=== PATIENT | female | born 2000 | race Caucasian/White ===

== ENCOUNTER 2020-12-22 04:32 | Inpatient (IN) | payer BC ==
[2020-12-22 04:53] VITALS: BMI 24.4
[2020-12-22] MEDS ORDERED: ACETAMINOPHEN 325 MG TABLET (FP) PO ONE (05:13)
[2020-12-22] MEDS ORDERED: ACETAMINOPHEN 325 MG TABLET (FP) ONE (05:28)
[2020-12-22 06:54] LABS: BASO % 0.3 % (0-2.0); HEMATOCRIT 44.3 % (32.4-45.2); MCH 29.9 pg (25.7-33.7); MCHC 33.9 g/dl (32.0-36.0); MEAN CELL VOLUME 88.1 fl (80-96); MEAN PLT VOLUME 10.2 fl (7.5-11.1); MONO % 6.7 % (3.8-10.2); PLATELET COUNT 160 10^3/uL (134-434); RBC 5.03 M/mm3 (3.60-5.2); RDW 13.6 % (11.6-15.6); WHITE BLOOD COUNT 12.8 K/mm3 (4.0-10.0)
[2020-12-22 07:02] LABS: INR 0.97 (0.83-1.09); PROTHROMBIN TIME (PATIENT) 11.7 SEC (9.7-13.0)
[2020-12-22 07:04] LABS: ACTIVATED PTT 23.7 SECONDS (25.2-36.5)
[2020-12-22 07:16] LABS: ALBUMIN 3.7 g/dl (3.4-5.0); BLOOD UREA NITROGEN 6.8 mg/dL (7-18); CALCIUM 9.1 mg/dL (8.5-10.1)
[2020-12-22 07:20] LABS: CREATININE 0.5 mg/dL (0.55-1.3)
[2020-12-22 07:22] LABS: TOT PROT 7.3 g/dl (6.4-8.2)
[2020-12-22 08:11] LABS: EPI CELLS 17 /uL (0-25.1); HYALINE CASTS 12 /uL (0-3.1); PH,URINE 6.5 (5.0-8.0); URINE APPEARANCE CLOUDY; URINE BACTERIA >9,000 /uL (0-1359); URINE BILIRUBIN NEGATIVE (NEGATIVE); URINE COLOR YELLOW; URINE GLUCOSE (UA) NEGATIVE (NEGATIVE); URINE KETONE NEGATIVE (NEGATIVE); URINE LEUK ESTERASE 2+ (NEGATIVE); URINE NITRITE POSITIVE (NEGATIVE); URINE PROTEIN NEGATIVE (NEGATIVE); URINE RBC 9 /uL (0-23.9); URINE WBC 402 /uL (0-25.8)
[2020-12-22] MEDS ORDERED: CEPHALEXIN MONOHYDRATE 500 MG CAPSULE (UD) PO ONE (09:14)
[2020-12-22] MEDS ORDERED: CEPHALEXIN MONOHYDRATE 500 MG CAPSULE (UD) ONE (09:16)
[2020-12-22] MEDS ORDERED: LACTATED RINGERS SOLUTION 1,000 ML/1,000 ML INFUS.BAG IV STA ×2 (10:19→12:08)
[2020-12-22 10:47] LABS: BILIRUBIN,TOTAL 0.5 mg/dL (0.2-1)
[2020-12-22] MEDS ORDERED: ACETAMINOPHEN 1000 MG/100 ML VIAL (NON FORMULARY) IVPB ONE (11:36)
[2020-12-22] MEDS ORDERED: CEFTRIAXONE 1,000 MG in DEXTROSE 5%-WATER - 50 ML IVPB ONE (11:37)
[2020-12-22] MEDS ORDERED: morphine CARPU-JECT 2 MG/1 ML DISP.SYRIN IVPUSH ONE (11:37)
[2020-12-22] MEDS ORDERED: MORPHINE SULFATE 2 MG/ML VIAL ONE ×2 (11:40→18:51)
[2020-12-22] MEDS ORDERED: ACETAMINOPHEN INJECTION 100 ML IVPB ONE (11:41)
[2020-12-22] MEDS ORDERED: CEFTRIAXONE 1 GM/50 ML BAG ONE (11:41)
[2020-12-22] MEDS ORDERED: OXYTOCIN 15 UNITS/ LR 250 ML 15 UNIT/250 ML INFUS.BAG IVPB SCH (12:30)
[2020-12-22] MEDS ORDERED: ONDANSETRON 4 MG/2 ML VIAL ONE (12:58)
[2020-12-22] MEDS ORDERED: ONDANSETRON 4 MG/2 ML VIAL IVPUSH ONE (12:59)
[2020-12-22] MEDS ORDERED: NS IVPB SCH (13:15)
[2020-12-22] MEDS ORDERED: OXYTOCIN IVPB SCH (13:15)
[2020-12-22] MEDS ORDERED: OXYTOCIN 30 UNITS in 0.9% NS 30 UNIT/500 ML INFUS.BAG IVPB SCH (13:15)
[2020-12-22 13:56] LABS: BASO % 0.1 % (0-2.0); HEMATOCRIT 40.1 % (32.4-45.2); HEMOGLOBIN 13.2 GM/dL (10.7-15.3); MCH 29.2 pg (25.7-33.7); MEAN CELL VOLUME 88.6 fl (80-96); MEAN PLT VOLUME 9.6 fl (7.5-11.1); MONO % 3.6 % (3.8-10.2); NEUT % 92.3 % (42.8-82.8); PLATELET COUNT 176 10^3/uL (134-434); RBC 4.53 M/mm3 (3.60-5.2); RDW 13.5 % (11.6-15.6); WHITE BLOOD COUNT 16.3 K/mm3 (4.0-10.0)
[2020-12-22 14:27] LABS: ANISOCYTOSIS 0; HELMET CELLS 0; HOWELL-JOLLY BODIES 0; MACROCYTOSIS 0; OVALOCYTE 0; PLATELET ESTIMATE NORMAL; ROULEAU 0; SICKELED CELLS 0; TARGET CELLS 0; TEAR DROP CELLS 0; TOXIC GRANULATION 0
[2020-12-22] MEDS ORDERED: SODIUM CHLORIDE 1,000 ML IV SCH (16:30)
[2020-12-22] MEDS ORDERED: ONDANSETRON 4 MG/2 ML VIAL IVPUSH PRN (16:30)
[2020-12-22] MEDS: MORPHINE SULFATE 2 MG/ML VIAL IVPUSH PRN (19:03)
[2020-12-22] MEDS ORDERED: ZONISAMIDE 100 MG CAPSULE PO SCH (22:00)
[2020-12-22 22:36] LABS: HEMATOCRIT 31.2 % (32.4-45.2); HEMOGLOBIN 10.6 GM/dL (10.7-15.3); MCH 30.1 pg (25.7-33.7); MEAN CELL VOLUME 88.5 fl (80-96); MEAN PLT VOLUME 9.7 fl (7.5-11.1); PLATELET COUNT 171 10^3/uL (134-434); RBC 3.53 M/mm3 (3.60-5.2); RDW 13.4 % (11.6-15.6); WHITE BLOOD COUNT 19.2 K/mm3 (4.0-10.0)
[2020-12-22] MEDS ORDERED: LACTATED RINGERS SOLUTION 1,000 ML/1,000 ML INFUS.BAG IV SCH (23:45)
[2020-12-23] MEDS ORDERED: ACETAMINOPHEN 1000 MG/100 ML VIAL (NON FORMULARY) IVPB ONE (04:27)
[2020-12-23] MEDS ORDERED: LACTATED RINGERS SOLUTION 1,000 ML/1,000 ML INFUS.BAG IV SCH ×2 (04:28→06:10)
[2020-12-23 09:06] LABS: HEMATOCRIT 33.3 % (32.4-45.2); HEMOGLOBIN 11.3 GM/dL (10.7-15.3); MCH 29.9 pg (25.7-33.7); MCHC 34.1 g/dl (32.0-36.0); MEAN CELL VOLUME 87.7 fl (80-96); MEAN PLT VOLUME 9.5 fl (7.5-11.1); PLATELET COUNT 134 10^3/uL (134-434); RDW 13.9 % (11.6-15.6); WHITE BLOOD COUNT 12.4 K/mm3 (4.0-10.0)
[2020-12-23 09:34] LABS: BLOOD UREA NITROGEN 5.4 mg/dL (7-18); CALCIUM 7.8 mg/dL (8.5-10.1); MAGNESIUM 1.7 mg/dL (1.8-2.4)
[2020-12-23 09:36] LABS: CREATININE 0.6 mg/dL (0.55-1.3); PHOSPHOROUS 3.7 mg/dL (2.5-4.9)
[2020-12-23 09:39] LABS: BILIRUBIN,TOTAL 1.1 mg/dL (0.2-1)
[2020-12-23] MEDS ORDERED: ZONISAMIDE 100 MG CAPSULE PO SCH (10:00)
[2020-12-23] MEDS ORDERED: DEXTROSE 5%-WATER - 50 ML IVPB ONE (11:06)
[2020-12-23] MEDS ORDERED: cefTRIAXone SODIUM 1 GM VIAL ONE (11:06)
[2020-12-23] MEDS: MORPHINE SULFATE 2 MG/ML VIAL IVPUSH PRN (11:14)
[2020-12-23] MEDS: CEFTRIAXONE 1 GM in DEXTROSE 5%-WATER - 50 ML IVPB SCH (11:16)
[2020-12-23 12:17] LABS: ALBUMIN 2.6 g/dl (3.4-5.0)
[2020-12-23] MEDS ORDERED: RUFINAMIDE 400 MG PO SCH ×3 (12:45→12:48)
[2020-12-23] MEDS ORDERED: PATIENT'S OWN MEDICATION (NON-FORMULARY) (Rufinamide 400 MG Tablet) PO SCH (12:45)
[2020-12-23] MEDS: oxyCODONE HCL 5 MG TABLET PO PRN ×2 (13:05→20:41)
[2020-12-23] MEDS: ZONISAMIDE 100 MG CAPSULE PO SCH (18:05)
[2020-12-23] MEDS ORDERED: PT OWN MED DRAWER 7, Y5N ONE ×2 (18:08→18:13)
[2020-12-23] MEDS: RUFINAMIDE PO SCH (18:08)
[2020-12-23] MEDS ORDERED: ACETAMINOPHEN 1000 MG/100 ML VIAL (NON FORMULARY) IVPB PRN (20:47)
[2020-12-23] MEDS: ACETAMINOPHEN 325 MG TABLET (FP) PO PRN (22:00)
[2020-12-24] MEDS ORDERED: PT OWN MED DRAWER 7, Y5N ONE ×4 (05:02→18:10)
[2020-12-24] MEDS: ZONISAMIDE 100 MG CAPSULE PO SCH ×2 (05:38→18:42)
[2020-12-24] MEDS: RUFINAMIDE PO SCH ×2 (05:39→18:42)
[2020-12-24] MEDS: oxyCODONE HCL 5 MG TABLET PO PRN ×2 (09:10→18:22)
[2020-12-24] MEDS: ACETAMINOPHEN 325 MG TABLET (FP) PO PRN ×2 (09:11→23:25)
[2020-12-24 09:19] LABS: BASO % 0.2 % (0-2.0); EOS % 0.1 % (0-4.5); HEMATOCRIT 35.6 % (32.4-45.2); HEMOGLOBIN 11.9 GM/dL (10.7-15.3); LYMPH % 8.9 % (8-40); MCH 29.2 pg (25.7-33.7); MCHC 33.3 g/dl (32.0-36.0); MEAN CELL VOLUME 87.7 fl (80-96); MEAN PLT VOLUME 9.6 fl (7.5-11.1); MONO % 8.5 % (3.8-10.2); NEUT % 82.3 % (42.8-82.8); PLATELET COUNT 126 10^3/uL (134-434); RBC 4.06 M/mm3 (3.60-5.2); RDW 14.3 % (11.6-15.6); WHITE BLOOD COUNT 6.1 K/mm3 (4.0-10.0)
[2020-12-24] MEDS ORDERED: DEXTROSE 5%-WATER - 50 ML IVPB ONE (10:39)
[2020-12-24] MEDS ORDERED: cefTRIAXone SODIUM 1 GM VIAL ONE (10:39)
[2020-12-24] MEDS: CEFTRIAXONE 1 GM in DEXTROSE 5%-WATER - 50 ML IVPB SCH (11:56)
[2020-12-24] MEDS: SODIUM CHLORIDE 1,000 ML IV SCH (18:43)
[2020-12-24] MEDS: MORPHINE SULFATE 2 MG/ML VIAL IVPUSH PRN (22:07)
[2020-12-25] MEDS ORDERED: PT OWN MED DRAWER 7, Y5N ONE ×2 (05:25→14:00)
[2020-12-25] MEDS: SODIUM CHLORIDE 1,000 ML IV SCH (05:35)
[2020-12-25] MEDS: RUFINAMIDE PO SCH (05:35)
[2020-12-25] MEDS: ZONISAMIDE 100 MG CAPSULE PO SCH (05:35)
[2020-12-25] MEDS: MORPHINE SULFATE 2 MG/ML VIAL IVPUSH PRN ×2 (05:36→10:28)
[2020-12-25] MEDS: CEFTRIAXONE 1 GM in DEXTROSE 5%-WATER - 50 ML IVPB SCH (09:26)
[2020-12-25] MEDS ORDERED: DEXTROSE 5%-WATER - 50 ML IVPB ONE (09:28)
[2020-12-25] MEDS ORDERED: cefTRIAXone SODIUM 1 GM VIAL ONE (09:28)
[2020-12-25 10:41] VITALS: BP 99/60; PULSE 78; TEMP 98
[2020-12-25 11:55] LABS: BASO % 0.3 % (0-2.0); EOS % 0.2 % (0-4.5); HEMATOCRIT 33.3 % (32.4-45.2); HEMOGLOBIN 11.1 GM/dL (10.7-15.3); LYMPH % 21.7 % (8-40); MCH 29.2 pg (25.7-33.7); MCHC 33.2 g/dl (32.0-36.0); MEAN CELL VOLUME 87.9 fl (80-96); MEAN PLT VOLUME 9.4 fl (7.5-11.1); MONO % 11.1 % (3.8-10.2); NEUT % 66.7 % (42.8-82.8); PLATELET COUNT 140 10^3/uL (134-434); RBC 3.79 M/mm3 (3.60-5.2); RDW 14.2 % (11.6-15.6); WHITE BLOOD COUNT 5.3 K/mm3 (4.0-10.0)
[2020-12-25 12:20] LABS: BLOOD UREA NITROGEN 4.1 mg/dL (7-18)
[2020-12-25 12:21] LABS: CALCIUM 8.2 mg/dL (8.5-10.1); MAGNESIUM 1.9 mg/dL (1.8-2.4)
[2020-12-25 12:23] LABS: CREATININE 0.6 mg/dL (0.55-1.3); PHOSPHOROUS 3.5 mg/dL (2.5-4.9)
== END 2020-12-25 14:06 | disposition home or self-care (01) | DRG 779 ==
LOC: JER 04:32 → JERBED 16:10 → J5S 23:04
PROVIDERS: ATTEND Internal Medicine
DX: O03.9 Complete or unspecified spontaneous abortion without complication (principal); N39.0 Urinary tract infection, site not specified; D50.0 Iron deficiency anemia secondary to blood loss (chronic); G40.909 Epilepsy, unspecified, not intractable, without status epilepticus; R50.9 Fever, unspecified; R10.84 Generalized abdominal pain; B96.20 Unspecified Escherichia coli [E. coli] as the cause of diseases classified elsewhere
CPT/HCPCS: 36415; 36430; 74177-TC; 76817-TC; 80048; 80053; 81003; 83735; 84100; 85025; 85027; 85610; 85730; 86850; 86900; 86901; 86922; 87086; 87186; 88300-TC; 99285-25; C9803; J0131; P9058; Q9967; U0003; U0005